=== PATIENT | female | born 1970 | race Caucasian/White ===

== ENCOUNTER 2022-03-17 08:55 | Emergency (ER) | payer OTHER ==
[~2022-03-17] VITALS: Ht 165.1 cm; Wt 77.3 kg
[2022-03-17 09:09] VITALS: BP 148/92
[2022-03-17] MEDS ORDERED: proparacaine 0.5% ophthalmic drops 15ml RIGHTEYE ONE (09:35)
[2022-03-17] MEDS ORDERED: ondansetron 4mg rapidly disintigrating tab PO ONE (10:40)
[2022-03-17] MEDS ORDERED: ibuprofen tablet 400 MG TABLET PO ONE (10:40)
[2022-03-17] MEDS ORDERED: acetaminophen 325mg tablet PO ONE (10:40)
[2022-03-17] MEDS ORDERED: NEO/5DRO3 RIGHTEYE (10:41)
[2022-03-17] MEDS ORDERED: ONDA8TAB13 PO (10:43)
== END 2022-03-17 11:08 | disposition home or self-care (01) ==
LOC: ER 08:56
DX: H57.11 Ocular pain, right eye (principal); Z88.0 Allergy status to penicillin
CPT/HCPCS: 99284